=== PATIENT | female | born 1970 | race Native Hawaiian/Other Pacific Islander ===

== ENCOUNTER 2018-05-27 06:12 | Day surgery (SDC) | payer OTHER ==
[2018-05-21 12:49] VITALS: BMI 21.7
[2018-05-27] MEDS ORDERED: cefOXitin IV 1 gm in Dextrose 1 GM/50 ML BAG IVPB ONE (07:31)
[2018-05-27] MEDS ORDERED: Propofol 10 mg/ml Inj (20 ML) ONE (07:38)
[2018-05-27] MEDS ORDERED: Midazolam 2 MG/2 ML VIAL ONE (07:38)
[2018-05-27] MEDS ORDERED: Lactated Ringer's 1,000 ML IV ONE (08:14)
[2018-05-27] MEDS ORDERED: HYDROmorphone 0.5 mg/0.5 ml ISec IVP PRN (08:16)
[2018-05-27 09:36] VITALS: TEMP 97.5; O2SAT 100
[2018-05-27 10:33] VITALS: BP 127/67; PULSE 72; RESP 16
--- NOTE | 2018-05-29 06:42 | OP ---
PROCEDURE DATE: 05/27/2018 PREOPERATIVE DIAGNOSIS: A 47-year-old 0, para with endometrial polyp, rule out hyperplasia. POSTOPERATIVE DIAGNOSIS: A 47-year-old 0, para with endometrial polyp, rule out hyperplasia. PROCEDURE PERFORMED: MyoSure, dilatation and curettage, hysteroscopy. SURGEON: Félix Murray MD TRUCK DRIVER INSTRUCTOR: None. TYPE OF ANESTHESIA: General. ANESTHESIOLOGIST: Brian Villela MD ESTIMATED BLOOD LOSS: 20 mL. DEFICIT: 385 mL. COMPLICATIONS: None. DESCRIPTION OF PROCEDURE: After informed consent was obtained, the patient was brought to the operating room, placed on the table where general anesthesia was administered. She was prepped and draped in normal sterile fashion. Uterus was examined and found to be about 8 weeks' size. No pelvic or adnexal mass. The anterior lip of cervix was grasped with a tenaculum. Gentle dilatation of the cervix was done. Hysteroscope was introduced and found the polyp to be on the posterior wall of the uterus. Pictures were taken and the decision was made to use the MyoSure. MyoSure was used was sent to Pathology. The polyp was taken out. Then, the . After that, sharp curettage of the endometrium was done. It was sent to pathology. It was ECC and was sent to Pathology. Moderate amount of the tissue was sent. After that, the tenaculum was taken out. The patient tolerated the procedure well. All lap, sponge, and instrument counts were correct x2. Félix Murray MD
== END 2018-05-27 10:22 | disposition home or self-care (01) ==
LOC: C.SDS 06:12
PROVIDERS: ATTEND Obstetrics & Gynecology
DX: N93.9 Abnormal uterine and vaginal bleeding, unspecified (principal); N84.1 Polyp of cervix uteri; N84.0 Polyp of corpus uteri
CPT/HCPCS: 58558; 88305; J0694; J2250; J2704; J3010; J7120

== ENCOUNTER 2018-05-27 15:37 | Emergency (ER) | payer OTHER ==
[2018-05-27 16:24] VITALS: BMI 21.3
[2018-05-27] MEDS ORDERED: DiphenhydrAMINE 50 mg/ml Inj IVP STA (16:24)
[2018-05-27] MEDS ORDERED: Sodium Chloride 0.9% 1,000 ML ONE (16:25)
[2018-05-27 16:34] VITALS: O2SAT 100
--- NOTE | 2018-05-27 18:08 | C.PDOC ---
History Of Present Illness 47 y/o female presents to the ED complaining of sensation of swelling in her throat, sore throat, and redness down both arms onset this afternoon. Patient had a DNC this morning and was discharged home. There were no complications as per patient. Currently she denies any lip/tongue swelling, tingling, SOB, or other associated symptoms. Time Seen by Provider: 05/27/18 16:18 Chief Complaint (Nursing): Allergic Reaction History Per: Patient History/Exam Limitations: no limitations Onset/Duration Of Symptoms: Mins Current Symptoms Are (Timing): Still Present Past Medical History Reviewed: Historical Data, Nursing Documentation, Vital Signs Vital Signs: Last Vital Signs Temp 98.8 F 05/27/18 16:15 Pulse 76 05/27/18 17:40 Resp 18 05/27/18 17:40 BP 123/62 05/27/18 17:40 Pulse Ox 100 05/27/18 17:40 - Medical History PMH: Denies: Chronic Kidney Disease Family History: States: No Known Family Hx - Social History Hx Alcohol Use: No Hx Substance Use: No - Immunization History Hx Tetanus Toxoid Vaccination: No Hx Influenza Vaccination: No Hx Pneumococcal Vaccination: No Review Of Systems Except As Marked, All Systems Reviewed And Found Negative. Constitutional: Negative for: Fever, Chills, Sweats ENT: Positive for: Throat Pain, Throat Swelling Cardiovascular: Negative for: Chest Pain Respiratory: Negative for: Shortness of Breath, Wheezing Gastrointestinal: Negative for: Nausea, Vomiting Skin: Positive for: Rash (down b/l arms) Neurological: Negative for: Weakness, Dizziness Physical Exam - Physical Exam Appears: Non-toxic, No Acute Distress Skin: Warm, Dry, Rash (Mild erythema down bilateral upper extremities) Head: Atraumatic, Normacephalic Eye(s): bilateral: Normal Inspection, PERRL, EOMI Oral Mucosa: Moist, No Drooling Throat: Normal (uvula midline, not swollen), No Erythema, Other (No stridor) Neck: Normal ROM, No Paracervical Tenderness, Supple Chest: Symmetrical Cardiovascular: Rhythm Regular, No Murmur Respiratory: Normal Breath Sounds, No Rales, No Rhonchi, No Wheezing, Other (No respiratory distress) Extremity: Bilateral: Atraumatic, Normal Color And Temperature Pulses: Left Radial: Normal, Right Radial: Normal Neurological/Psych: Oriented x3, Normal Speech (speaking in complete sentences) ED Course And Treatment O2 Sat by Pulse Oximetry: 100 (RA) Pulse Ox Interpretation: Normal Medical Decision Making Medical Decision Making: Impression: Allergic reaction Plan: --20 mg IV Pepcid --50 mg IV Benadryl --125 mg IV Solu-Medrol --Chest x-ray --Reassess and dispo Disposition - Disposition Referrals: [facility] Barbara Paiz, [Non-Staff] - Disposition: HOME/ ROUTINE Disposition Time: 19:20 Condition: GOOD Additional Instructions: [facility] [place], thank you for letting us take care of you today. The emergency medical care you received today was directed at your acute symptoms. If you were prescribed any medication, please fill it and take as directed. It may take several days for your symptoms to resolve. Return to the Emergency Department if your symptoms worsen, do not improve, or if you have any other problems. Please contact your doctor or call one of the physicians/clinics you have been referred to that are listed on the Patient Visit Information form that is included in your discharge packet. Bring any paperwork you were given at discharge with you along with any medications you are taking to your follow up visit. Our treatment cannot replace ongoing medical care by a primary care provider outside of the emergency department. Thank you for allowing the [facility] team to be part of your care today. Follow up with your primary care doctor in 2-3 days for re-evaluation and further management. Prescriptions: predniSONE [Prednisone] 40 mg PO DAILY #10 tab Instructions: Anaphylaxis (DC) Forms: [employer] ([place] - Clinical Impression Clinical Impression: Allergic urticaria - Scribe Statement The provider has reviewed the documentation as recorded by the Miryam Freeman Provider Attestation: All medical record entries made by the Miryam were at my direction and personally dictated by me. I have reviewed the chart and agree that the record accurately reflects my personal performance of the history, physical exam, medical decision making, and the department course for this patient. I have also personally directed, reviewed, and agree with the discharge instructions and disposition.
[2018-05-27 19:46] VITALS: BP 122/73; PULSE 85; RESP 20; TEMP 98.4
--- NOTE | 2018-05-27 20:59 | RAD ---
Date of service: 05/27/2018 HISTORY: D C today - r/o PTX COMPARISON: No prior. FINDINGS: LUNGS: No active pulmonary disease. PLEURA: No significant pleural effusion identified, no pneumothorax apparent. CARDIOVASCULAR: No aortic atherosclerotic calcification present. Normal cardiac size. No pulmonary vascular congestion. OSSEOUS STRUCTURES: No significant abnormalities. VISUALIZED UPPER ABDOMEN: Normal. OTHER FINDINGS: None. IMPRESSION: No active disease.
== END 2018-05-27 20:21 | disposition home or self-care (01) ==
LOC: C.ER 15:37
DX: L50.0 Allergic urticaria (principal)
CPT/HCPCS: 71045; 96374; 96375; 99285; J1200; J2930